=== PATIENT | male | born 1950 | race Caucasian/White ===

== ENCOUNTER 2017-10-25 10:55 | Emergency (ER) | payer OTHER ==
[2017-10-25 11:28] VITALS: BP 164/89
--- NOTE | 2017-10-25 11:40 | UC ---
Shoulder Pain HPI - HPI Summary HPI Summary: The patient is a 66-year-old male that presents here for evaluation of the left shoulder injury. He is right handed. He got up at night and tripped and fell hitting his left shoulder on a windowsill. He has pain with abduction. If he rolls onto that shoulder when he is trying to sleep and wake him up. He has had some bruising. - History of Current Complaint Chief Complaint: UCUpperExtremity Stated Complaint: L SHOULDER COMPLAINT Time Seen by Provider: 10/25/17 11:32 Hx Obtained From: Patient Onset/Duration: Sudden Onset, Lasting Days Timing: Constant Severity Initially: Moderate Severity Currently: Mild Pain Intensity: 2 Pain Scale Used: 0-10 Numeric Character: Dull, Aching Aggravating Factor(s): Abduction Alleviating Factor(s): Rest Associated Signs And Symptoms: Positive: Bruising Related History: Dominant Hand Right Torso: 1 - tender 2 - brising - Allergies/Home Medications Allergies/Adverse Reactions: Allergies Allergy/AdvReac Type Severity Reaction Status Date / Time Penicillins Allergy GI Upset Verified 10/25/17 11:28 dairy Allergy Intermediate Congestion Uncoded 05/08/12 11:17 PMH/Surg Hx/FS Hx/Imm Hx - Surgical History Surgical History: Yes Surgery Procedure, Year, and Place: right shoulder surgery. nasal surgery as a teenager - Social History Alcohol Use: Occasionally Substance Use Type: None Smoking Status (MU): Never Smoked Tobacco Review of Systems Constitutional: Negative Skin: Negative Eyes: Negative ENT: Negative Respiratory: Negative Cardiovascular: Negative Gastrointestinal: Negative Genitourinary: Negative Motor: Negative Neurovascular: Negative Musculoskeletal: Arthralgia Neurological: Negative Psychological: Negative Is Patient Immunocompromised?: No All Other Systems Reviewed And Are Negative: Yes Physical Exam Triage Information Reviewed: Yes Appearance: Well-Appearing, No Pain Distress, Well-Nourished Vital Signs: Initial Vital Signs Temp 98.2 F 10/25/17 11:24 Pulse 52 10/25/17 11:24 Resp 18 10/25/17 11:24 BP 164/89 09/16/18 11:24 Pulse Ox 100 10/25/17 11:24 Vital Signs Reviewed: Yes Eyes: Positive: Conjunctiva Clear ENT: Positive: Hearing grossly normal. Negative: Nasal congestion, Nasal drainage, Muffled voice, Hoarse voice Neck: Positive: Supple, Nontender, No Lymphadenopathy Respiratory: Positive: Lungs clear, Normal breath sounds, No respiratory distress, No accessory muscle use Cardiovascular: Positive: RRR, No Murmur Musculoskeletal: Positive: ROM Limited @ - left shoulder, limited abduction Neurological: Positive: Alert Psychological Exam: Normal Skin Exam: Normal Diagnostics - Radiology No standard instances Xray Interpretation: Positive (See Comments) - IMPRESSION: SLIGHT WIDENING OF THE ACROMIOCLAVICULAR JOINT MEASURING 6 MM IN DIAMETER COULD BE SEEN IN A TYPE I AC JOINT INJUR Radiology Interpretation Completed By: Radiologist Shoulder Course/Dx - Course Course Of Treatment: advised of elevated BP. he states he will have it checked at next visit - Differential Dx/Diagnosis Provider Diagnoses: left shoulder injury. ? partial rotator cuff tear vs occult humeral head fx vs other. elevated BP without diagnosis of HTN Discharge - Sign-Out/Discharge Documenting (check all that apply): Patient Departure All imaging exams completed and their final reports reviewed: Yes - Discharge Plan Condition: Stable Disposition: HOME Patient Education Materials: Rotator Cuff Injury (ED) Referrals: Kali Garcia MD [Primary Care Provider] - Additional Instructions: I suggest you follow up with your correction officer head or orthopedist for further evaluation of your shoulder You could have a partial tear of your rotator cuff ice twice daily - Billing Disposition and Condition Condition: STABLE Disposition: Home
--- NOTE | 2017-10-25 12:31 | RAD ---
INDICATION: Left shoulder pain since a fall one week earlier COMPARISON: None. TECHNIQUE: 4 views of the left shoulder were obtained. FINDINGS: The adequately corticated bones are in normal alignment. There is mild widening of the acromioclavicular joint measuring 6 mm. The joint is otherwise anatomically aligned. Mild degenerative changes at the left glenohumeral joint include mild sclerotic change of the articulating surface of the bony glenoid labrum and inferior marginal osteophyte formation. The bones are otherwise intact and appropriately aligned. IMPRESSION: SLIGHT WIDENING OF THE ACROMIOCLAVICULAR JOINT MEASURING 6 MM IN DIAMETER COULD BE SEEN IN A TYPE I AC JOINT INJURY. If this correlates to the patient's clinical symptomatology further characterization of the bilateral AC joints could be made with radiographic imaging with and without hand weights to evaluate for asymmetric widening.
== END 2017-10-25 12:44 | disposition home or self-care (01) ==
LOC: UCEAST 10:55
DX: S49.92XA Unspecified injury of left shoulder and upper arm, initial encounter (principal); W01.10XA Fall on same level from slipping, tripping and stumbling with subsequent striking against unspecified object, initial encounter; Y93.9 Activity, unspecified; Y92.009 Unspecified place in unspecified non-institutional (private) residence as the place of occurrence of the external cause; R03.0 Elevated blood-pressure reading, without diagnosis of hypertension; Z88.0 Allergy status to penicillin
CPT/HCPCS: 99211; G0463

== ENCOUNTER 2017-11-17 11:54 | Emergency (ER) | payer OTHER ==
--- NOTE | 2017-11-17 12:35 | ED ---
HPI Chest Pain - HPI Summary HPI Summary: This patient is a 66 year old M presenting to [facility] with a chief complaint of chest pain radiating to his left shoulder blade since 16:00 yesterday. The patient rates the pain 5/10 in severity. Symptoms aggravated by running. He experienced pain in shoulder and dagger in my back every time he took a step while running. Patient reports lightheadedness and high blood pressure. He was at urgent care a few days ago because he fell, hit his head, and hit his shoulder. - History of Current Complaint Chief Complaint: EDChestPainROMI Time Seen by Provider: 11/17/17 12:23 Hx Obtained From: Patient Onset/Duration: Started Days Ago - Yesterday, Still Present Timing: Constant Initial Severity: Moderate Current Severity: Moderate Pain Intensity: 5 Pain Scale Used: 0-10 Numeric Chest Pain Radiates: Yes Chest Pain Radiates To:: Shoulder - left Aggravating Factor(s): Exertion Associated Signs and Symptoms: Positive: Chest Pain - radiating to left shoulder , Lightheadedness, Other: - High blood pressure - Allergy/Home Medications Allergies/Adverse Reactions: Allergies Allergy/AdvReac Type Severity Reaction Status Date / Time Penicillins Allergy See Comment Verified 11/17/17 12:21 dairy Allergy Intermediate Congestion Uncoded 05/08/12 11:17 Home Medications: Home Medications Cyanocobalamin TAB* [Vitamin B12 TAB*] 500 mcg PO DAILY 11/17/17 [History Confirmed 11/17/17] Lisinopril TAB* [Prinivil TAB*] 5 mg PO DAILY 11/17/17 [History Confirmed ] Lott-3 Fatty Acids (Nf) [Fish Oil (NF)] 1,000 mg PO DAILY 11/17/17 [History Confirmed 11/17/17] Zolpidem TAB* [Ambien TAB*] 5 mg PO BEDTIME PRN 11/17/17 [History Confirmed 10/27] PMH/Surg Hx/FS Hx/Imm Hx Endocrine/Hematology History: Denies: Hx Diabetes Cardiovascular History: Reports: Other Cardiovascular Problems/Disorders - Pt had cardiac workup for arrhytmias, no problems found Denies: Hx Congestive Heart Failure, Hx Hypertension, Hx Pacemaker/ICD History: Denies: Hx Dialysis, Hx Renal Disease Sensory History: Denies: Hx Hearing Aid Psychiatric History: Denies: Hx Panic Disorder - Surgical History Surgery Procedure, Year, and Place: right shoulder surgery. nasal surgery as a teenager Infectious Disease History: No Infectious Disease History: Denies: Traveled Outside the [place] in Last 30 Days - Family History Known Family History: Positive: Cardiac Disease - Social History Occupation: Employed Full-time Lives: With Family Alcohol Use: Occasionally Substance Use Type: Reports: None Smoking Status (MU): Never Smoked Tobacco Review of Systems Positive: Chest Pain - radiating to his left shoulder, Other - High blood pressure Positive: Other - Symptoms aggravated by running. He experienced pain in shoulder and dagger in my back every time he took a step while running Neurological: Other - Lightheadedness All Other Systems Reviewed And Are Negative: Yes Physical Exam - Summary Physical Exam Summary: Appearance: The patient is well-nourished in no acute distress and in no acute pain. Skin: The skin is warm and dry and skin color reflects adequate perfusion. HEENT: The head is normocephalic and atraumatic. The pupils are equal and reactive. The conjunctivae are clear and without drainage. Nares are patent and without drainage. Mouth reveals moist mucous membranes and the throat is without erythema and exudate. The external ears are intact. The ear canals are patent and without drainage. The tympanic membranes are intact. Neck: The neck is supple with full range of motion and non-tender. There are no carotid bruits. There is no neck vein distension. Respiratory: Chest is non-tender. Lungs are clear to auscultation and breath sounds are symmetrical and equal. Cardiovascular: Heart is regular rate and rhythm. There is no murmur or rub auscultated. There is no peripheral edema and pulses are symmetrical and equal. Abdomen: The abdomen is soft and non-tender. There are normal bowel sounds heard in all four quadrants and there is no organomegaly palpated. Musculoskeletal: There is no back tenderness noted. Extremities are non-tender with full range of motion. There is good capillary refill. There is no peripheral edema or calf tenderness elicited. Neurological: Patient is alert and oriented to person, place and time. The patient has symmetrical motor strength in all four extremities. Cranial nerves are grossly intact. Deep tendon reflexes are symmetrical and equal in all four extremities. Psychiatric: The patient has an appropriate affect and does not exhibit any anxiety or depression. Triage Information Reviewed: Yes Vital Signs On Initial Exam: Initial Vitals Temp Pulse Resp BP Pulse Ox 98.5 F 55 16 173/75 98 11/17/17 12:17 11/17/17 12:17 11/17/17 12:17 11/17/17 12:17 11/17/17 12:17 Vital Signs Reviewed: Yes Diagnostics - Vital Signs Vital Signs Temp Pulse Resp BP Pulse Ox 11/17/17 12:17 98.5 F 55 16 173/75 98 - Laboratory Result Diagrams: 11/17/17 12:51 11/17/17 12:51 Lab Statement: Any lab studies that have been ordered have been reviewed, and results considered in the medical decision making process. - Radiology Chest X-Ray Radiology Interpretation Completed By: Radiologist - 13:44. NO ACTIVE CARDIOPULMONARY DISEASE. ED Physician has reviewed this imaging report. - EKG 12:22 Cardiac Rate: Bradycardia - 52 BPM EKG Rhythm: Sinus Rhythm ST Segment: Non-Specific - Nonspecific diffuse ST changes Chest Pain Course/Dx - Course Course Of Treatment: Mr. Perez presented to the emergency department with about 24 hours of left-sided chest pain which she described as sharp and radiating into the back of his left shoulder blade. It was worse with activity especially running and better with rest. His EKG showed a bradycardia with very mild ST depressions in leads II,III, aVF and V6 and possibly V5 he had poor R-wave progression in leads V1 and V2 V3 with QRS complexes. We have no old EKGs to compare and the office is not available. However we do have a Holter monitor which is lead II only and it is identical to today's EKG lead II. His vitals were stable he was non-toxic in appearance. He was kept on a monitor while labs including a delayed troponin and d-dimer were obtained and these were unremarkable. I don't think anything dangerous is happening I think this is more likely a musculoskeletal pain and recommended close follow-up with his PCP. - Diagnoses Provider Diagnoses: Chest pain Discharge - Sign-Out/Discharge Documenting (check all that apply): Patient Departure - Discharge Plan Condition: Stable Disposition: HOME Patient Education Materials: Chest Pain (ED) Referrals: Kali Garcia MD [Primary Care Provider] - 3 Days Additional Instructions: Follow up with your primary care provider in 2-3 days. If symptoms worsen, return to the ED. - Billing Disposition and Condition Condition: STABLE Disposition: Home - Attestation Statements Document Initiated by Scribe: Yes Documenting Scribe: Faizan Davis Provider For Whom Carolynn is Documenting (Include Credential): Kedar Love MD Scribe Attestation: Faizan Walsh, scribed for Kedar Love MD on 11/17/17 at 1813. Scribe Documentation Reviewed: Yes Provider Attestation: The documentation as recorded by the Faizan joseph accurately reflects the service I personally performed and the decisions made by me, Kedar Love MD
--- OUTSIDE RECORDS SUMMARY | 2017-11-17 12:44 | XMS REPORT ---
:1950 External Reference #:[id number] Author Organization [employer] Address [address] [place] [address] [place] [address] Phone [phone] Care Team Providers Name Role Phone Kali Garcia MD Primary Care Physician Unavailable Payers Type Date Identification Numbers Payment Provider Subscriber Commercial Effective: Policy Number: [id number] [employer] Babatunde Perez 2013 Group Number: [id number] [address] PayID: [id number] [place] [address] Medigap Part B Expires: Policy Number: [employer] Yolanda 2013 [id number] Lacie Group Number: [id number] [address] PayID: [id number] [place] [address] Problems Date Description Provider Status Onset: 01/20/2007 Raynaud's disease Kali Garcia M.D.,FACP Active Onset: 03/29/2010 Onychomycosis Kali Garcia M.D.,FACP Active Onset: 05/17/2012 Gastroesophageal reflux disease Kali Garcia M.D., FACP Active Onset: 02/22/2014 Insomnia Kali Garcia M.D.,FACP Active Onset: 10/13/2014 Diverticulitis of colon Kali Garcia M.D.,FACP Active Note: recurrent Onset: 11/30/2015 Vitamin B12 deficiency (non Kali Garcia M.D.,FACP Active anemic) Onset: 12/21/2015 Contracture of palmar fascia Alexi Lima MD Active Onset: 05/12/2014 Acute sinusitis Don Tristan M.D. 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 Use Never Smoked Cigarettes ETOH Use 11/30/2015 Drinks Alcoholic Beverages 8-10 drinks/week Occasionally Recreational Drug Use Denies Drug Use Smoking Patient has never smoked Exercise Type/Frequency Exercises regularly Exercise Type/Frequency Hiking Document: 02/19/07 - Prog Note - Francesca Exercise Type/Frequency Jogs 3 times a week Exercise Type/Frequency Bikes sporadically General Hx Text 23 yo son Allergies, Adverse Reactions, Alerts Date Description Reaction Status Severity Comments 04/07/2007 dairy products active 04/07/2007 wheat active 05/17/2012 Penicillin severe cramps active 02/19/2007 NKDA inactive Medications Medication Date Status Form Strength Qnty SIG Indications Ordering Provider Lisinopril Active Tablets 5mg 30tabs 1 by mouth I10 Zsofia 018 every day MANDY Lewis Ambien Active Tablets 5mg 14tabs 1 by mouth G47.00 Don 014 tablet at [facility], bedtime as M.D. needed Fish Oil Active Capsules 1000mg 1 tsp qd 411.89 Kali Concentrate 011 Davidson Garcia M.D.,FACP Vitamin B-12 Active Tablets 500mcg 1 po qd Kali 011 Sub Davidson Garcia M.D.,FACP B12 Fast Active Unknown Dissolve 000 Fish Oil + D3 Active Unknown 000 Cephalexin Hx Capsules 500mg 28caps take one Kali 017 - capsule Davidson Garcia, every 6 M.D.,FACP 017 hours for 7 days Hydroxyzine Hx Tablets 25mg 60tabs 1-2 tabs Kali LEIJA 017 - po qhs prn Davidson Garcia, insomnia M.D.,FACP 018 Belsomra Hx Tablets 10mg 10tabs 1 by mouth F51.01 Kali 017 - every D. Radha, night at M.D.,FACP 018 bedtime (fill when patient calls, patient bringing copay card) G47.00 Benzocaine Oral 06/11/2016 - Hx Solution 20% R07.0 Zsofia Anesthetic 12/11/2016 MANDY Lewis Triamcinolone 11/30/2015 - Hx Cream 0.1% 15gm apply every L30.9 Ap Diez Acetonide 12/11/2016 day as needed Davidson Garcia M.D.,MISHA Ciprofloxacin HCL 09/14/2015 - Hx Tablets 500mg 20ta twice a day K57.32 [place] 11/30/2015 jovanny Tristan M.D. Metronidazole 09/14/2015 - Hx Tablets 500mg 30ta 1 by mouth K57.32 Don 11/30/2015 bs three timses Azalea, a day/no M.DMairsa alcohol until 5 days after you are done. Colace 09/14/2015 - Hx Capsules 100mg 60ca 2 cap at K57.32 [place] 12/11/2016 ps bedtime Praneeth Tristan Metronidazole 08/21/2015 - Hx Tablets 500mg 21ta three times a K57. Kali 08/28/2015 bs day for 7 D. woody GarciaDMarisa,MISHA Ciprofloxacin HCL 08/21/2015 - Hx Tablets 500mg 14ta si twice K57. Kali 08/28/2015 bs a day x 7 D. Radha, days M.D.,FACP Prednisone 05/07/2015 - Hx Tablets 10mg 30ta 1 tablet by [id number] [place] 08/21/2015 bs mouth three Conley, times a day M.D. Skelaxin 05/07/2015 - Hx Tablets 800mg 30ta 1 tablet by M54.5 [place] 08/21/2015 bs mouth three Conley, times a day, M.DMarisa as needed for muscle contraction Cyclobenzaprine HCL 05/04/2015 - Hx Tablets 5mg 30ta take one M54.5 [place] 05/07/2015 bs tablet by REESE Zelaya mouth every 8 hours prn. may take a second tablet if first not effetive. Methylprednisolone 05/04/2015 - Hx Tablets 4mg QS as directed M54.5 [place] (Melvin) 05/07/2015 on package REESE Zelaya Levsin 01/30/2015 - Hx Tablets 0.125 30ta 1 sl every 15 K57.32 [place], 08/21/2015 mg bs min.prn pain, MD Zachery max 4/hr and 6/day Cipro 10/13/2014 - Hx Tablets 500mg 10ta 1 tab by 789.04 [place] 10/13/2014 bs mouth every [place], APPRAISER ART 12 hours x's 5 days Cipro 10/13/2014 - Hx Tablets 500mg 20ta 1 tab by [place] 10/23/2014 bs mouth every [place], APPRAISER ART 12 hours x's 10 days Flagyl 10/13/2014 - Hx Tablets 500mg 30ta 1 tab tid [place] 10/23/2014 bs [id number] [place], APPRAISER ART Azithromycin 05/12/2014 - Hx Tablets 250mg 6tab 2 tab today 461.8 Don 10/13/2014 s and then 1tab Azale[place], daily Praneeth Ibuprofen 02/22/2014 - Hx Tablets 200mg 100t 2 tabs as Kali 12/11/2016 abs needed Davidson Garcia M.D.,FACP Ciprofloxacin HCL 09/07/2013 - Hx Tablets 500mg 20ta si bid x 562.10 Shanta 02/22/2014 bs 10 days Praneeth [place] Flagyl 08/23/2012 - Hx Tablets 250mg 21ta 1 po tid for 562.10 Kali 07/18/2013 bs 1 week Davidson Garcia M.D.,FACP Ciprofloxacin HCL 08/23/2012 - Hx Tablets 500mg 14ta si bid x 562.10 Kali 07/18/2013 bs 7 days Davidson Garcia M.D.,FACP Cipro 08/10/2012 - Hx Tablets 500mg 20ta 1 po bid for Charissa 08/23/2012 bs 10 days Varn, N.P. Metronidazole 08/10/2012 - Hx Tablets 500mg 30ta one tablet by Shanta 02/22/2014 bs mouth 3 times [place], daily for 10 M.D. days Gabapentin 07/12/2010 - [facility]ca [facility] Davidson Garica M.D.,FACP Cyanocobalamin 06/06/2010 - Hx Solution 1000m 1mon 1 ml im 281.1 Nilson Rg 10/24/2010 cg/ML thsu [id number] Davidson Garcia M.D.,FACP Trazodone HCL 06/06/2010 - Hx Tablets 50mg 30ta 1/2-1 po qhs 780.52 Kali 07/12/2010 jovanny Garcia M.D.,FACP Omeprazole 05/24/2010 - Hx Capsules 20mg 90ca [address] [facility] 04/16/2011 [facility] christen Garcia M.D.,[facility] Aspir-81 05/10/2010 - Hx Tablets DR 81mg 1 po qd 411.89 Kali 04/16/2011 Davidson Garcia M.D.,[facility] Cephalexin 03/08/2010 - Hx Capsules 500mg 30ca tid po 707.15 [facility] 03/29/2010 christen Garcia M.D.,[facility] Terbinafine HCL 03/08/2010 - Hx Tablets 250mg 30ta 1 [facility]ov[facility] Cephalexin 10/19/2009 - Hx Capsules 500mg 28ca qid po 682.7 [facility] 03/08/2010 ps Davidson Garcia M.D.,FACP Xanax 09/20/2009 - Hx Tablets 0.5mg 5tab [address] [facility] 05/10/2010 s qhs prn Davidson Garcia M.D.,[facility] (Authorizatio n to release emergency supply) Cipro 09/03/2009 - Hx Tablets 500mg 10ta bid 009.3 Sivananda, 10/19/2009 MD Janie Mullins 08/17/2007 - Hx Tablets 8mg 10ta use prn sleep 307.42 Kali 03/29/2008 bs Davidson Garcia M.D.,FACP Ambien 01/22/2007 - Hx Tablets 10mg 30ta 1 po qhs prn Kali 04/07/2007 bs sleep Davidson Garcia M.D.,FACP Augmentin 01/15/2007 - Hx Tablets 875mg 20ta PO bid Kali 04/07/2007 bs Davidson Garcia M.D.,FACP Prilosec OTC - Hx Tablets DR 20mg 30ta 1 po qd Unknown 02/22/2014 bs Medications Administered in Office Medication Date Status Form Strength Qnty SIG Indications Ordering Provider B-12 Injection Administered Injection Nurse Visit 011 [place] B-12 Injection Administered Injection Nurse Visit 011 [place] B-12 Injection Administered Injection Nurse Visit 011 [place] B-12 Injection Administered Injection Nurse Visit 011 [place] B-[address] [facility] 011 Davidson Garcia M.D.,[facility] B-12 Injection Administered Injection Nurse Visit 011 [place] Immunizations CPT Code Status Date Vaccine Lot # [id number] Given 11/11/2017 Influenza Virus Vaccine, Quadrivalent, Split, [id number] Preservative Free 22577 Given 11/30/2015 Influenza Virus Vaccine, Quadrivalent, Split [id number] Virus, [place] Use [address]8032 Given 11/23/2013 Flu Vaccine Split Virus Preservative Free For Indiv 3Yr Older 59189 Given 06/03/2013 Zoster (Zostavax) [id number] 93849 Given 11/18/2009 Influenza Virus 3Yrs & Over 58513 Given 04/07/2007 Tdap - Tetanus/Diptheria/Acellular Pertussis 80970 Given 04/07/2007 Tdap - Tetanus/Diptheria/Acellular Pertussis 46125 Given 04/07/2007 Tdap - Tetanus/Diptheria/Acellular Pertussis 99024 Given 04/07/2007 Tdap - Tetanus/Diptheria/Acellular Pertussis [id number] 41315 Given 01/20/2007 Influenza Virus 3Yrs & Over [id number] Vital Signs Date Vital Result Comment 11/11/2017 Heart Rate 48 /min 11/11/2017 Height 66 inches 5'6" Weight 143.50 lb Heart Rate 56 /min BP Systolic 160 mmHg BP Diastolic 82 mmHg O2 % BldC Oximetry 95 % BMI (Body Mass Index) 23.2 kg/m2 02/26/2017 Height 66 inches 5'6" Weight 142.00 lb Heart Rate 64 /min BP Systolic 120 mmHg BP Diastolic 72 mmHg Respiratory Rate 20 /min Body Temperature 97.2 F Pain Level 7 BMI (Body Mass Index) 22.9 kg/m2 01/05/2017 Heart Rate 60 /min Respiratory Rate 16 /min Body Temperature 97.8 F 12/26/2016 Heart Rate 54 /min Respiratory Rate 16 /min Body Temperature 97.4 F 12/23/2016 Heart Rate 64 /min Respiratory Rate 16 /min Body Temperature 96.5 F 12/19/2016 Heart Rate 64 /min Respiratory Rate 16 /min Body Temperature 98.2 F 12/17/2016 Heart Rate 66 /min Respiratory Rate 16 /min Body Temperature 98.7 F 12/16/2016 Height 65 inches 5'5" Weight 136.00 lb Heart Rate 60 /min BP Systolic 116 mmHg BP Diastolic 78 mmHg Respiratory Rate 16 /min Body Temperature 97.5 F BMI (Body Mass Index) 22.6 kg/m2 12/12/2016 Height 65 inches 5'5" Weight 140.00 lb Heart Rate 69 /min BP Systolic Sitting 136 mmHg BP Diastolic Sitting 70 mmHg Body Temperature 97.4 F O2 % BldC Oximetry 98 % BMI (Body Mass Index) 23.3 kg/m2 11/19/2016 Weight 141.00 lb Heart Rate 53 /min BP Systolic Sitting 120 mmHg BP Diastolic Sitting 66 mmHg Body Temperature 96.6 F O2 % BldC Oximetry 99 % 06/11/2016 Weight 139.25 lb Heart Rate 53 /min BP Systolic Sitting 126 mmHg BP Diastolic Sitting 78 mmHg Body Temperature 97.7 F O2 % BldC Oximetry 99 % 12/21/2015 Height 65 inches 5'5" Weight 141.00 lb Respiratory Rate 16 /min Pain Level 1 BMI (Body Mass Index) 23.5 kg/m2 11/30/2015 Height 65 inches 5'5" Weight 141.50 lb Heart Rate 50 /min BP Systolic Sitting 150 mmHg BP Diastolic Sitting 72 mmHg Body Temperature 97.8 F O2 % BldC Oximetry 98 % BMI (Body Mass Index) 23.5 kg/m2 09/14/2015 Weight 138.00 lb with shoes Heart Rate 49 /min BP Systolic Sitting 132 mmHg BP Diastolic Sitting 62 mmHg Body Temperature 97.5 F O2 % BldC Oximetry 99 % 08/21/2015 Weight 138.00 lb Heart Rate 55 /min BP Systolic Sitting 116 mmHg BP Diastolic Sitting 74 mmHg Body Temperature 99.2 F O2 % BldC Oximetry 98 % 05/07/2015 Height 66 inches 5'6" Weight 142.00 lb Heart Rate 97 /min BP Systolic Sitting 138 mmHg BP Diastolic Sitting 78 mmHg Body Temperature 98.1 F O2 % BldC Oximetry 97 % BMI (Body Mass Index) 22.9 kg/m2 05/04/2015 Height 66 inches 5'6" Weight 144.75 lb Heart Rate 52 /min BP Systolic Sitting 123 mmHg BP Diastolic Sitting 66 mmHg Body Temperature 96.6 F Pain Level 9 back pain O2 % BldC Oximetry 97 % BMI (Body Mass Index) 23.4 kg/m2 10/13/2014 Height 66 inches 5'6" Weight 136.50 lb Heart Rate 51 /min BP Systolic Sitting 120 mmHg BP Diastolic Sitting 72 mmHg Body Temperature 98.1 F O2 % BldC Oximetry 98 % BMI (Body Mass Index) 22.0 kg/m2 05/24/2014 Height 66 inches 5'6" Weight 138.00 lb Heart Rate 54 /min BP Systolic 115 mmHg BP Diastolic 69 mmHg Pain Level 3 BMI (Body Mass Index) 22.3 kg/m2 05/12/2014 Height 66 inches 5'6" Weight 141.38 lb Heart Rate 41 /min BP Systolic Sitting 118 mmHg BP Diastolic Sitting 70 mmHg Body Temperature 97.7 F O2 % BldC Oximetry 95 % BMI (Body Mass Index) 22.8 kg/m2 02/22/2014 Weight 141.00 lb Heart Rate 52 /min BP Systolic Sitting 140 mmHg BP Diastolic Sitting 66 mmHg Body Temperature 96.7 F 09/07/2013 Weight 142.00 lb Heart Rate 66 /min BP Systolic Sitting 128 mmHg BP Diastolic Sitting 80 mmHg O2 % BldC Oximetry 98.4 % 07/18/2013 Weight 140.75 lb Heart Rate 62 /min BP Systolic Sitting 146 mmHg BP Diastolic Sitting 80 mmHg Body Temperature 97.7 F O2 % BldC Oximetry 98 % 08/23/2012 Weight 134.00 lb Heart Rate 46 /min BP Systolic Sitting 134 mmHg BP Diastolic Sitting 80 mmHg O2 % BldC Oximetry 98 % 08/10/2012 Weight 134.00 lb Heart Rate 64 /min BP Systolic Sitting 124 mmHg BP Diastolic Sitting 78 mmHg Body Temperature 99.3 F 05/17/2012 Height 65.5 inches 5'5.50" Weight 133.50 lb Heart Rate 64 /min BP Systolic Sitting 114 mmHg BP Diastolic Sitting 66 mmHg BMI (Body Mass Index) 21.9 kg/m2 04/27/2012 Height 66 inches 5'6" Weight 134.50 lb Heart Rate 62 /min BP Systolic Sitting 140 mmHg BP Diastolic Sitting 84 mmHg Body Temperature 98.8 F O2 % BldC Oximetry 97 % BMI (Body Mass Index) 21.7 kg/m2 04/16/2011 Height 66 inches 5'6" Weight 143.00 lb Heart Rate 70 /min BP Systolic Sitting 118 mmHg L BP Diastolic Sitting 68 mmHg L BMI (Body Mass Index) 23.1 kg/m2 06/06/2010 Weight 140.00 lb Heart Rate 66 /min BP Systolic Sitting 132 mmHg BP Diastolic Sitting 76 mmHg Body Temperature 97.3 F lt ear 05/15/2010 Weight 141.00 lb Heart Rate 62 /min BP Systolic Sitting 134 mmHg BP Diastolic Sitting 60 mmHg Body Temperature 96.6 F left ear 05/10/2010 Weight 139.00 lb Heart Rate 62 /min BP Systolic Sitting 120 mmHg BP Diastolic Sitting 72 mmHg 03/29/2010 Weight 142.00 lb Heart Rate 66 /min BP Systolic Sitting 116 mmHg BP Diastolic Sitting 66 mmHg 03/08/2010 Weight 141.00 lb Heart Rate 60 /min BP Systolic Sitting 138 mmHg BP Diastolic Sitting 80 mmHg Body Temperature 96.8 F O2 % BldC Oximetry 97 % 10/19/2009 Weight 139.00 lb Heart Rate 58 /min BP Systolic Sitting 144 mmHg BP Diastolic Sitting 80 mmHg Body Temperature 98.3 F 09/05/2009 Weight 130.00 lb Heart Rate 56 /min BP Systolic Sitting 116 mmHg BP Diastolic Sitting 80 mmHg Body Temperature 97.8 F 09/03/2009 Weight 131.00 lb Heart Rate 60 /min BP Systolic Sitting 140 mmHg BP Diastolic Sitting 80 mmHg Body Temperature 98.6 F 01/15/2009 Weight 142.75 lb Heart Rate 60 /min BP Systolic Sitting 128 mmHg BP Diastolic Sitting 80 mmHg Body Temperature 97.7 F 12/27/2008 Height 66 inches 5'6" Weight 139.75 lb Heart Rate 54 /min BP Systolic Sitting 129 mmHg BP Diastolic Sitting 79 mmHg Body Temperature 97.9 F BMI (Body Mass Index) 22.6 kg/m2 07/11/2008 Height 66 inches 5'6" Weight 140.00 lb Heart Rate 74 /min BP Systolic Sitting 124 mmHg BP Diastolic Sitting 70 mmHg Respiratory Rate 16 /min BMI (Body Mass Index) 22.6 kg/m2 03/29/2008 Height 66 inches 5'6" Weight 135.00 lb Heart Rate 56 /min BP Systolic Sitting 128 mmHg BP Diastolic Sitting 72 mmHg BMI (Body Mass Index) 21.8 kg/m2 08/17/2007 Height 66 inches 5'6" Weight 139.00 lb Heart Rate 70 /min BP Systolic Sitting 110 mmHg BP Diastolic Sitting 70 mmHg BMI (Body Mass Index) 22.4 kg/m2 04/07/2007 Height 66 inches 5'6" Weight 146.00 lb Heart Rate 68 /min BP Systolic Sitting 120 mmHg BP Diastolic Sitting 70 mmHg BMI (Body Mass Index) 23.6 kg/m2 02/19/2007 Height 66 inches 5'6" Weight 143.00 lb Heart Rate 70 /min BP Systolic Sitting 132 mmHg BP Diastolic Sitting 78 mmHg BMI (Body Mass Index) 23.1 kg/m2 01/20/2007 Height 66 inches 5'6" Weight 145.00 lb BP Systolic Sitting 118 mmHg BP Diastolic Sitting 62 mmHg Body Temperature 97.9 F BMI (Body Mass Index) 23.4 kg/m2 Results Test Date Test Result H/L Range Note Comp Metabolic Panel 11/12/2017 Sodium 140 mmol/L 135-145 Potassium 4.1 mmol/L 3.5-5.0 Chloride 106 mmol/L 101-111 Co2 Carbon Dioxide 30 mmol/L 22-32 Anion Gap 4 mmol/L 2-11 Glucose 102 mg/dL High 70-100 Blood Urea Nitrogen 13 mg/dL 6-24 Creatinine 0.91 mg/dL 0.67-1.17 BUN/Creatinine Ratio 14.3 8-20 Calcium 9.1 mg/dL 8.6-10.3 Total Protein 5.9 g/dL Low 6.4-8.9 Albumin 4.1 g/dL 3.2-5.2 Globulin 1.8 g/dL Low 2-4 Albumin/Globulin Ratio 2.3 1-3 Total Bilirubin 0.90 mg/dL 0.2-1.0 Alkaline Phosphatase 70 U/L 34-104 Alt 25 U/L 7-52 Ast 22 U/L 13-39 Egfr Non- 83.4 >60 Egfr 100.9 >60 1 Lipid Profile (Trig/Chol/HDL) 11/12/2017 Triglycerides 128 mg/dL 2 Cholesterol 237 mg/dL 3 HDL Cholesterol 56.2 mg/dL 4 LDL Cholesterol 155 mg/dL 5 Wound Culture/Sensi 12/16/2016 Wound/Misc Culture-Gram SEE RESULT BELOW 6, 7 Stain Lipid Profile 11/28/2015 Triglycerides 111 mg/dL 8 (Trig/Chol/HDL) Cholesterol 199 mg/dL 9 HDL Cholesterol 57.9 mg/dL 10 LDL Cholesterol 119 mg/dL 11 Laboratory test finding 11/28/2015 Glucose 89 mg/dL 70-100 12 CBC Auto Diff 11/28/2015 White Blood Count 4.7 10^3/uL 3.5-10.8 Red Blood Count 4.87 10^6/uL 4.0-5.4 Hemoglobin 15.5 g/dL 14.0-18.0 Hematocrit 46 % 42-52 Mean Corpuscular Volume 94 fL 80-94 Mean Corpuscular Hemoglobin 32 pg High 27-31 Mean Corpuscular HGB Conc 34 g/dL 31-36 Red Cell Distribution Width 13 % 10.5-15 Platelet Count 210 10^3/uL 150-450 Mean Platelet Volume 8 um3 7.4-10.4 Abs Neutrophils 2.9 10^3/uL 1.5-7.7 Abs Lymphocytes 1.3 10^3/uL 1.0-4.8 Abs Monocytes 0.4 10^3/uL 0-0.8 Abs Eosinophils 0.1 10^3/uL 0-0.6 Abs Basophils 0 10^3/uL 0-0.2 Abs Nucleated RBC 0 10^3/uL Granulocyte % 60.4 % 38-83 Lymphocyte % 27.9 % 25-47 Monocyte % 8.3 % 1-9 Eosinophil % 2.4 % 0-6 Basophil % 1.0 % 0-2 Nucleated Red Blood Cells % 0.1 Laboratory test finding 11/28/2015 Vitamin B12 320 pg/mL 180-914 13 CBC Auto Diff 10/13/2014 White Blood Count 11.5 10^3/uL High 4.8-10.8 Red Blood Count 4.58 10^6/uL 4.0-5.4 Hemoglobin 15.1 g/dL 14.0-18.0 Hematocrit 45 % 42-52 Mean Corpuscular Volume 98 fL High 80-94 Mean Corpuscular Hemoglobin 33 pg High 27-31 Mean Corpuscular HGB Conc 34 g/dL 31-36 Red Cell Distribution Width 12 % 10.5-15 Platelet Count 196 10^3/uL 150-450 Mean Platelet Volume 8 um3 7.4-10.4 Abs Neutrophils 9.4 10^3/uL High 1.5-7.7 Abs Lymphocytes 1.2 10^3/uL 1.0-4.8 Abs Monocytes 0.8 10^3/uL 0-0.8 Abs Eosinophils 0 10^3/uL 0-0.6 Abs Basophils 0.1 10^3/uL 0-0.2 Abs Nucleated RBC 0.02 10^3/uL Granulocyte % 81.6 % 38-83 Lymphocyte % 10.3 % Low 25-47 Monocyte % 7.3 % 1-9 Eosinophil % 0.3 % 0-6 Basophil % 0.5 % 0-2 Nucleated Red Blood Cells % 0.2 Laboratory test finding 10/13/2014 Amylase 45 U/L 29-103 Lipase 13 U/L 11.0-82.0 Erythrocyte Sed Rate 50 mm/Hr High 0-20 Creatinine 05/31/2014 Creatinine 0.90 mg/dL 0.67-1.17 Egfr Non- 85.2 >60 Egfr 109.6 >60 14 Creatinine 08/10/2012 Creatinine 1.00 mg/dL 0.50-1.40 Egfr Non- 76.0 >60 Egfr 97.7 >60 15 Laboratory test finding 08/10/2012 Blood Urea Nitrogen 11 mg/dL 6-24 Laboratory test finding 05/17/2012 Vitamin B12 690 pg/mL 180-914 CBC Auto Diff 05/17/2012 White Blood Count 3.6 10^3/uL Low 4.8-10.8 Red Blood Count 4.49 10^6/uL 4.0-5.4 Hemoglobin 15.1 g/dL 14.0-18.0 Hematocrit 43 % 42-52 Mean Corpuscular Volume 96 fL High 80-94 Mean Corpuscular Hemoglobin 34 pg High 27-31 Mean Corpuscular HGB Conc 35 g/dL 31-36 Red Cell Distribution Width 12 % 10.5-15 Platelet Count 304 10^3/uL 150-450 Mean Platelet Volume 8 um3 7.4-10.4 Abs Neutrophils 2.0 10^3/uL 1.5-7.7 Abs Lymphocytes 1.2 10^3/uL 1.0-4.8 Abs Monocytes 0.4 10^3/uL 0-0.8 Abs Eosinophils 0 10^3/uL 0-0.6 Abs Basophils 0 10^3/uL 0-0.2 Abs Nucleated RBC 0 10^3/uL Granulocyte % 55.0 % 38-83 Lymphocyte % 31.9 % 25-47 Monocyte % 11.3 % High 1-9 Eosinophil % 1.3 % 0-6 Basophil % 0.5 % 0-2 Nucleated Red Blood Cells % 0 Throat-Beta Strept 05/08/2012 Throat Beta Strep Culture (SEE NOTE) 16 Liver Function Panel 04/12/2010 Total Protein 5.8 GM/DL Low 6.2-8.1 Albumin 3.8 GM/DL 3.6-5.4 Globulin 2.0 GM/DL 2-4 Albumin/Globulin Ratio 1.9 1-3 Bilirubin Total 0.8 mg/dL 0.4-1.5 17 Bilirubin Direct 0.1 mg/dL 0.1-0.5 Indirect Bilirubin 0.7 mg/dL 0.3-1.0 18 Alkaline Phosphatase 76 U/L 39-117 Alt (SGPT) 22 U/L 17-63 Ast (Sgot) 24 U/L 12-42 Laboratory test finding 04/12/2010 Vitamin B12 228 pg/mL 180-914 Laboratory test finding 03/15/2010 Glucose 93 mg/dL 70-100 Thyroid Panel 03/15/2010 Free Thyroxine 0.77 NG/ML 0.61-1.24 Thyroxine 6.0 g/dL 5-12 TSH 2.11 MIU/ML 0.34-5.60 Laboratory test finding 03/15/2010 C Reactive Protein < 0.5 mg/dL Less Than 0.5 CBC With Electronic 03/15/2010 White Blood Count 4.4 CUMM Low 4.8-10.8 Diff Red Cell Count 4.61 CUMM 4.6-6.2 Hemoglobin 15.5 g/dL 14.0-18.0 Hematocrit 46 % 42-52 Mean Corpuscular Volume 99 um3 High 80-94 Mean Corpuscular Hemoglob 34 pg High 27-31 Mean Corpuscular HGB Cone 34 g/dL 32-36 Redcell Distribution WDTH 12 % 10.5-15 Platelet Count 203 CUMM 150-450 Mean Platelet Volume 8.8 um3 7.4-10.4 Gran % 56.4 % 38-83 Lymph % 31.9 % 25-47 Mononuclear % 9.0 % 1-9 Eosinophil % 1.9 % 0-6 Basophil % 0.8 % 0-2 Abs Lymphs 1.4 1.0-4.8 Abs Mononuclear 0.4 0-0.8 Absolute Neutrophil Count 2.5 1.5-7.7 Abs Eosinophils 0.1 0-0.6 Abs Basophils 0 0-0.2 Laboratory test 03/15/2010 Erythrocyte Sed Rate 4 MM/HR 0-20 finding Laboratory test 03/13/2010 Culture NO ORGANISMS SEE 19, 20 finding Sensitivity/Gram St <SEE NOTE> Culture Sensitivity NCF 19, 21 Comp Metabolic Panel 09/05/2009 Sodium 137 mmol/L 135-145 Potassium 4.4 mmol/L 3.5-5.0 Chloride 102 mmol/L 101-111 Co2 (Carbon Dioxide) 28.0 mmol/L 22-32 Anion Gap 7.0 mmol/L 2-11 22 Glucose 100 mg/dL 70-100 23 BUN 9 mg/dL 6-24 Creatinine 1.10 mg/dL 0.50-1.40 One Over Creatinine 0.90 BUN/Creatinine Ratio 8.2 8-20 Calcium 9.2 mg/dL 8.1-9.9 24 Total Protein 5.8 GM/DL Low 6.2-8.1 Albumin 3.4 GM/DL Low 3.6-5.4 Globulin 2.4 GM/DL 2-4 Albumin/Globulin Ratio 1.4 1-3 Bilirubin Total 1.0 mg/dL 0.4-1.5 25 Alkaline Phosphatase 79 U/L 39-117 Alt (SGPT) 32 U/L 17-63 Ast (Sgot) 29 U/L 12-42 eGFR Non- 73.1 > 60 eGFR 88.4 > 60 26 CBC With Electronic Diff 09/05/2009 White Blood Count 6.3 CUMM 4.8-10.8 Red Cell Count 4.27 CUMM Low 4.6-6.2 Hemoglobin 14.0 g/dL 14.0-18.0 Hematocrit 40 % Low 42-52 Mean Corpuscular Volume 94 um3 80-94 Mean Corpuscular Hemoglob 33 pg High 27-31 Mean Corpuscular HGB Cone 35 g/dL 32-36 Redcell Distribution WDTH 12 % 10.5-15 Platelet Count 341 CUMM 150-450 Mean Platelet Volume 7.1 um3 Low 7.4-10.4 Gran % 67.0 % 38-83 Lymph % 20.6 % Low 25-47 Mononuclear % 10.4 % High 1-9 Eosinophil % 1.3 % 0-6 Basophil % 0.7 % 0-2 Abs Lymphs 1.3 1.0-4.8 Abs Mononuclear 0.7 0-0.8 Absolute Neutrophil Count 4.2 1.5-7.7 Abs Eosinophils 0.1 0-0.6 Abs Basophils 0 0-0.2 Thyroid Panel 09/05/2009 Free Thyroxine 1.32 NG/ML High 0.61-1.24 27 Thyroxine 8.0 g/dL 5-12 TSH 1.36 MIU/ML 0.34-5.60 Laboratory test 09/05/2009 C Reactive Protein 3.0 mg/dL High Less Than 0.5 finding Throat Culture Full 01/31/2009 Throat Culture Full NF 28 Basic Metabolic Panel 07/20/2008 Sodium 136 mmol/L 135-145 Potassium 3.7 mmol/L 3.5-5.0 Chloride 101 mmol/L 101-111 Co2 (Carbon Dioxide) 28.0 mmol/L 22-32 Anion Gap 7.0 mmol/L 2-11 29 Glucose 90 mg/dL 70-100 30 BUN 16 mg/dL 6-24 Creatinine 1.10 mg/dL 0.50-1.40 One Over Creatinine 0.90 BUN/Creatinine Ratio 14.5 8-20 Calcium 9.2 mg/dL 8.1-9.9 31 Lipid Profile (Trig/Chol/HDL) 07/20/2008 Triglyceride 49 mg/dL 40-200 Cholesterol 196 mg/dL Less Than 200 32 High Density Lipoprotein 61 mg/dL High 40-60 33 Cholesterol/HDL Ratio 3.21 AVERAGE 1-4.97 Low Density Lipoprotein 125 mg/dL High Less Than 100 34 CBC With Electronic Diff 07/20/2008 White Blood Count 4.6 CUMM Low 4.8- 10.8 Red Cell Count 4.75 CUMM 4.6-6.2 Hemoglobin 16.2 g/dL 14.0-18.0 Hematocrit 46 % 42-52 Mean Corpuscular Volume 96 um3 High 80-94 Mean Corpuscular Hemoglob 34 pg High 27-31 Mean Corpuscular HGB Cone 36 g/dL 32-36 Redcell Distribution WDTH 12 % 10.5-15 Platelet Count 223 CUMM 150-450 Mean Platelet Volume 8.1 um3 7.4-10.4 Gran % 59.5 % 38-83 Lymph % 29.4 % 25-47 Mononuclear % 8.6 % 1-9 Eosinophil % 1.8 % 0-6 Basophil % 0.7 % 0-2 Abs Lymphs 1.4 1.0-4.8 Abs Mononuclear 0.4 0-0.8 Absolute Neutrophil Count 2.7 1.5-7.7 Abs Eosinophils 0.1 0-0.6 Abs Basophils 0 0-0.2 35 1 Because ethnic data is not always readily available, this report includes an eGFR for both -Americans and non- Americans. The National Kidney Disease Education Program (NKDEP) does not endorse the use of the MDRD equation for patients that are not between the ages of 18 and 70, are , have extremes of body size, muscle mass, or nutritional status, or are non- or non-. According to the National Kidney Foundation, irrespective of diagnosis, the stage of the disease is based on the level of kidney function: Stage Description GFR(mL/min/1.73 m(2)) 1 Kidney damage with normal or decreased GFR 90 2 Kidney damage with mild decrease in GFR 60-89 3 Moderate decrease in GFR 30-59 4 Severe decrease in GFR 15-29 5 Kidney failure <15 (or dialysis) 2 Desirable: <150 Borderline High: 150-199 High: 200-499 Very High: >500 3 Desirable: <200 Borderline High: 200-239 High: >239 4 Low: <40 Desirable: 40-60 High: >60 5 Desirable: <100 Near Optimal: 100-129 Borderline High: 130-159 High: 160-189 Very High: >189 6 [id number] SEE RESULT BELOW Name: BABATUNDE PEREZ : [address]: Rogelio Vo MD Acct: [id number] Unit: [id number] AGE: 65 Location: [facility] Re12/16/16 SEX: M Status: REG REF SPEC: [id number] WINIFRED: 12/16/16-[address]: Rogelio Vo MD REQ: [id number] RECD: 12/16/16 STATUS: COMP _ SOURCE: WOUND SPDESC: ORDERED: Culture Stain COMMENTS: [id number] Specimen Description CHEST ABSCESS Procedure Result Reported Site Wound/Misc Gram Stain Final 12/16/16- 1340 ML 3+ Neutrophils 2+ Epithelial Cells 4+ Gram Positive Cocci 3+ Gram Positive Bacilli 1+ Gram Negative Bacilli Wound/Misc Culture Final 12/18/16- 0917 ML No aerobic growth Mixed anaerobes; unable to isolate for further identification. * ML - MAIN LAB ([facility]) . END OF REPORT * ML=Testing performed at Main Lab DEPARTMENT OF PATHOLOGY, [address] [place] [address] Al Fleming M.D. Director [facility] # [id number] Desirable <150 Borderline high 150-199 High 200-499 Very High >500 9 Desirable <200 Borderline high 200-239 High >239 10 Low <40 Desirable: 40-60 High: >60 11 Desirable: <100 mg/dL Near Optimal: 100-129 mg/dL Borderline High: 130-159 mg/dL High: 160-189 mg/dL Very High: >189 mg/dL 12 FASTING 10 HOUR 13 Normal Range 180 to 914 Indeterminate Range 145 to 180 Deficient Range <145 14 Because ethnic data is not always readily available, this report includes an eGFR for both -Americans and non- Americans. The National Kidney Disease Education Program (NKDEP) does not endorse the use of the MDRD equation for patients that are not between the ages of 18 and 70, are , have extremes of body size, muscle mass, or nutritional status, or are non- or non-. According to the National Kidney Foundation, irrespective of diagnosis, the stage of the disease is based on the level of kidney function: Stage Description GFR(mL/min/1.73 m(2)) 1 Kidney damage with normal or decreased GFR 90 2 Kidney damage with mild decrease in GFR 60-89 3 Moderate decrease in GFR 30-59 4 Severe decrease in GFR 15-29 5 Kidney failure <15 (or dialysis) 15 Because ethnic data is not always readily available, this report includes an eGFR for both -Americans and non- Americans. The National Kidney Disease Education Program (NKDEP) does not endorse the use of the MDRD equation for patients that are not between the ages of 18 and 70, are , have extremes of body size, muscle mass, or nutritional status, or are non- or non-. According to the National Kidney Foundation, irrespective of diagnosis, the stage of the disease is based on the level of kidney function: Stage Description GFR(mL/min/1.73 m(2)) 1 Kidney damage with normal or decreased GFR 90 2 Kidney damage with mild decrease in GFR 60-89 3 Moderate decrease in GFR 30-59 4 Severe decrease in GFR 15-29 5 Kidney failure <15 (or dialysis) 16 RUN DATE: 05/10/12 [facility] LAB LIVE PAGE 1 RUN TIME: [address] [place] [id number] Specimen Inquiry Name: MIKA SOTO : [address]: Kedar Love MD Acct: [id number] Unit: [id number] AGE: 61 Location: [facility] Re05/08/12 SEX: M Status: DEP ER SPEC: [id number] WINIFRED: 05/08/12-[address]: Kedar Love MD REQ: [id number] RECD: 05/08/12-1255 STATUS: COMP [facility] DR: [facility] Kali Garcia MD _ SOURCE: THROAT SPDESC: ORDERED: Throat Beta Str Procedure Result Verified Site Throat Beta Strep Culture Final 05/10/12- 0850 ML Negative For Group A Beta Streptococcus END OF REPORT * ML=Testing performed at Main Lab DEPARTMENT OF PATHOLOGY, [address] [place] [address] Al Fleming M.D. Director [employer] Permit #[id number] 17 A metabolite of Naproxen, O-desmethylnaproxen, has been shown to interfere with the Jenzaid-Evelyn method for measuring total bilirubin. Samples from patients who have taken Naproxen have shown spurious elevation in total bilirubin levels. 18 Please note updated reference range, effective 08/30/09 19 IF LIQUID SPECIMEN, ORDER BODY FLUID CULTURE (BFSC) INSTEAD N COMMENTS: LEFT 2ND TOE CULTURE, PATIENT IS ON CEPHALEXIN 20 NO ORGANISMS SEEN NONE 21 NORMAL CUTANEOUS TONIA SUGGEST RESUBMISSION. 22 Anion gap measurement may be of limited value in the presence of any alkalosis, especially in a combined acid base disorder. . 23 Note change in reference range as of 09/30/07. The change was based on recommendations from the [place] [employer]. 24 Please note change in reference range effective 07 . 25 A metabolite of Naproxen, O-desmethylnaproxen, has been shown to interfere with the Jendrassik-Evelyn method for measuring total bilirubin. Samples from patients who have taken Naproxen have shown spurious elevation in total bilirubin levels. 26 Because ethnic data is not always readily available, this report includes an eGFR for both -Americans and non- Americans. The National Kidney Disease Education Program (NKDEP) does not endorse the use of the MDRD equation for patients that are not between the ages of 18 and 70, are , have extremes of body size, muscle mass, or nutritional status, or are non- or non-. According to the National Kidney Foundation, irrespective of diagnosis, the stage of the disease is based on the level of kidney function: Stage Description GFR(mL/min/1.73 m(2)) 1 Kidney damage with normal or decreased GFR 90 2 Kidney damage with mild decrease in GFR 60-89 3 Moderate decrease in GFR 30-59 4 Severe decrease in GFR 15-29 5 Kidney failure <15 (or dialysis) 27 PLEASE NOTE NEW REFERENCE RANGES. 28 NORMAL THROAT TONIA 29 Anion gap measurement may be of limited value in the presence of any alkalosis, especially in a combined acid base disorder. . 30 Note change in reference range as of 09/30/07. The change was based on recommendations from the Citizen [place] [employer]. 31 Please note change in reference range effective 07 . 32 CHOLESTEROL INTERPRETATION: Desirable: Less than 200 MG/DL Borderline-High Risk: 200-239 MG/DL High-Risk: 240 MG/DL and over 33 HDL INTERPRETATION: Undesirable: High Risk: Less than 40 MG/DL Desirable: Low Risk: Greater than 60 MG/DL 34 LDL INTERPRETATION: Low Risk Optimal Level: LDL Less than 100 MG/DL Near or Above Optimal: LDL 100-129 MG/DL Borderline High Risk: LDL 130-159 MG/DL High Risk: LDL 160-189 MG/DL Very High Risk: LDL Greater than 189 MG/DL 35 H H Check Failed Procedures Date CPT Code Description Status 11/11/2017 99334 EKG Tracing & Interpretation Completed 12/16/2016 98910 I&D Of Abscess Complicated Completed 10/25/2012 Colonoscopy Completed 10/23/2010 76838 Admin Of Inj Completed 09/12/2010 39502 Admin Of Inj Completed 08/14/2010 08986 Admin Of Inj Completed 07/04/2010 83209 Admin Of Inj Completed 06/06/2010 67711 Admin Of Inj Completed 12/27/2008 23141 EKG Tracing & Interpretation Completed 03/29/2008 88401 EKG Tracing & Interpretation Completed 03/02/2007 46371 Holter Monitor Interpretation Completed 07/10/2001 Colonoscopy Completed Encounters Type Date Location Provider CPT E/M Dx Office Visit 02/26/2017 [facility], 99021 M72.0 9:00a C.M.AMarisa Dacosta S63.636A Office Visit 01/05/2017 10:00a [facility] Lala Silva 50732 L72.3 Of [facility] REESE Huerta Z48.01 Office Visit 12/12/2016 3:40p [facility] Internal Kali Garcia, 91725 L72.3 Medicine - [place] Adriano Dacosta,FAC Office Visit 11/19/2016 9:10a [facility] Internal Kali Garcia, 79153 F51.01 Medicine - [place] Adriano Dacosta,FACP Office Visit 06/11/2016 2:30p [facility] Internal Loco Lewis, [facility] [address] R07.0 Medicine - [place] [address] G47.00 Office Visit 12/21/2015 1:20p [facility] [place] [address] M72.0 C.M.A. Office Visit 11/30/2015 2:00p [facility] Internal Medicine Kali Garcia, 37039 Z00.00 - [place] Adriano Dacosta,[facility] K57.32 Z11.59 M72.0 L30.9 Z23 Office Visit 09/14/2015 8:40a [facility] Internal Don Tristan, 12061 K57.32 Kiara Thurston M.D. Office Visit 08/21/2015 4:20p [facility] Internal Kali Garcia, 96462 K57.32 Medicine Markus Thurston M.D.,FACP Office Visit 05/07/2015 2:20p [facility] Internal Lennox Conley M.D. 38039 M54.5 Medicine - [place] [address] Office Visit 05/04/2015 9:20a [facility] Internal Tyrell Zelaya, [employer] 03797 M54.5 Medicine - [place] Office Visit 10/13/2014 11:00a [facility] Internal Cali Olsen, [employer] 54383 789.04 Medicine - [place] [address] 780.60 789.09 Office Visit 05/24/2014 8:00a [facility] Susan Mendoza, 48729 728.6 Of Abdi Dacosta Office Visit 05/12/2014 8:20a [facility] Internal Don Tristan M.D. 96820 461.8 Medicine - [place] [address] 461.9 Office Visit 02/22/2014 9:50a [facility] Internal Medicine Kali Garcia, 18511 728.6 - Bertrand Dacotsa,FACP 796.2 Office Visit 09/07/2013 11:30a [facility] Internal Medicine Shanta Iyer M.D. 60263 562.10 - Bert[place] Office Visit 07/18/2013 10:00a [facility] Internal Medicine Nahid Mary, 95798 784.1 - Bertrand Dacosta Office Visit 08/23/2012 12:10p [facility] Internal Medicine Kali Garcia, 91763 562.10 - Bertrand Dacosta,FACP Office Visit 08/10/2012 3:40p [facility] Internal Medicine Charissa Paz, N.PMarisa 87996 789.04 - [place] Office Visit 05/17/2012 9:10a [facility] Internal Medicine Kali Garcia, 42374 530.81 - Bertrand Dacosta,FACP V76.51 786.2 281.1 Office Visit 04/27/2012 11:40a [facility] Internal Medicine Nahid Mary, 31674 789.06 - Bertrand Dacosta Office Visit 04/16/2011 9:30a [facility] Internal Medicine Shanta Iyer, 53911 078.10 - Bertrand Dacosta 728.6 Office Visit 09/12/2010 2:45p DO Not Use Care Attendant AT Nurse Visit [place] [address] 281.1 [facility] Office Visit 07/04/2010 2:00p DO Not Use Care Attendant AT Nurse Visit [place] 10335 380.4 [facility] 281.1 Office Visit 06/06/2010 8:40a DO Not Use Care Attendant AT [facility], 67492 780.52 [facility] Raissa.Davidson,FACP 796.4 281.1 V77.91 Office Visit 05/15/2010 9:20a DO Not Use Care Attendant AT [facility], 43212 786.59 [facility] Raissa.Davidson 780.93 Office Visit 05/10/2010 1:20p DO Not Use Care Attendant AT [facility], 04938 411.89 Stowebryan Dacosta,[facility] Office Visit 03/29/2010 9:20a DO Not Use Care Attendant AT [facility], 31210 707.15 [facility].Davidson,FACP 110.1 281.1 729.2 443.0 Office Visit 03/08/2010 1:00p DO Not Use Care Attendant AT [facility], 60459 707.15 [facility].Davidson,FACP 730.17 110.1 Office Visit 10/19/2009 1:30p DO Not Use Care Attendant AT [facility], 05515 682.7 [place]ow[place] Haji.Davidson,[facility] Office Visit 09/05/2009 3:40p DO Not Use Care Attendant AT [facility], 61365 780.60 [place] Haji.Davidson 783.21 785.6 Office Visit 09/03/2009 4:00p DO Not Use [place] [address] 009.3 [facility] Office Visit 01/15/2009 1:30p DO Not [place] [address] 079.89 [facility] Office Visit 12/27/2008 3:00p DO Not [place] [address] 307.42 [facility] V81.0 V81.5 V74.1 V70.0 v70.0 Office Visit 07/18/2008 8:50a DO Not Use Care Attendant AT [facility] 606[address] [facility] Office Visit 07/11/2008 1:30p DO Not Use Care [place] [address] V78.1 [facility] V77.91 V82.9 V70.0 Office Visit 03/29/2008 3:30p DO Not Use [place] [address] 786.50 [facility] 733.6 Office Visit 08/17/2007 4:00p DO Not Use Care Attendant AT [facility] [place], [address]89[address] 307.42 [facility] Office Visit 04/07/2007 9:00a DO Not Use Care Attendant AT [facility] [place], [address] V70.0 [facility] 785.1 V06.1 Office Visit 02/19/2007 3:20p DO Not Use [place] [address] 785.1 [facility] 780.52 Office Visit 01/20/2007 4:20p DO Not Use Care Attendant AT [facility], 39309 461.9 [facility] V04.81 443.0 Plan of Care Future Appointment(s):12/16/2017 11:00 am - MANDY Montoya at [facility] Internal Medicine - [address]11/11/2017 - ANJEL Montoya10 Essential (primary) hypertensionNew Medication:Lisinopril 5 mgComments:HYPERTENSION, NEW DIAGNOSIS: Discussed at length nonpharmacologic strategies to reduce BP, in particular: continue with regular aerobic exercise and sleep hygiene.Please start on the BP medication.We discussed possible side effects: hypertensins and coughPlease call if develop Adalberto recommend monitoringbp's and keeping a log. We should establish lipid status and kidney function.Please get fasting labsat your convenience.Follow up:4-5 [id number] PalpitationsComments:I am giving you an order for a Holter monitor that would record any irregularities that may occur in24 hours time [id number] Encounter for immunization
[2017-11-17 12:59] LABS: ABS Basophils 0.1 10^3/ul (0-0.2); ABS Eosinophils 0.1 10^3/ul (0-0.6); ABS Lymphocytes 1.1 10^3/ul (1.0-4.8); ABS Monocytes 0.4 10^3/ul (0-0.8); ABS Neutrophils 3.2 10^3/ul (1.5-7.7); ABS Nucleated RBC 0 10^3/ul; Eosinophil % 1.4 % (0-6); Hematocrit 44 % (42-52); Hemoglobin 15.1 g/dl (14.0-18.0); Lymphocyte % 23.2 % (25-47); Mean Corpuscular HGB Conc 35 g/dl (31-36); Mean Corpuscular Hemoglobin 33 pg (27-31); Mean Corpuscular Volume 95 fL (80-94); Mean Platelet Volume 7.3 um3 (7.4-10.4); Nucleated Red Blood Cells % 0; Platelet Count 211 10^3/ul (150-450); Red Blood Count 4.61 10^6/ul (4.00-5.40); Red Cell Distribution Width 12 % (10.5-15); White Blood Count 4.8 10^3/ul (3.5-10.8)
[2017-11-17 13:09] LABS: INR 0.95 (0.77-1.02)
[2017-11-17 13:19] LABS: EGFR Non-African American 90.2 (>60)
--- NOTE | 2017-11-17 13:48 | RAD ---
HISTORY: CP COMPARISONS: January 01, 2009 VIEWS: 1: frontal AP view of the chest at 1:30 PM FINDINGS: LINES AND TUBES: None. CARDIOMEDIASTINAL SILHOUETTE: The cardiomediastinal silhouette is normal for portable technique. PLEURA: The costophrenic angles are sharp. No pleural abnormalities are noted. LUNG PARENCHYMA: The lungs are clear. ABDOMEN: The upper abdomen is clear. There is no subphrenic gas. BONES AND SOFT TISSUES: No bone or soft tissue abnormalities are noted. IMPRESSION: NO ACTIVE CARDIOPULMONARY DISEASE.
[2017-11-17 16:51] VITALS: BP 130/88
== END 2017-11-17 16:46 | disposition home or self-care (01) ==
LOC: ED 11:54
DX: R07.89 Other chest pain (principal); M25.512 Pain in left shoulder; R42 Dizziness and giddiness; R03.0 Elevated blood-pressure reading, without diagnosis of hypertension; R00.1 Bradycardia, unspecified; Z88.0 Allergy status to penicillin; Z91.011 Allergy to milk products; Z82.49 Family history of ischemic heart disease and other diseases of the circulatory system
CPT/HCPCS: 36415; 71045; 80053; 83605; 84484; 85025; 85379; 85610; 93005; 99283